=== PATIENT | male | born 1995 | race Caucasian/White ===

== ENCOUNTER 2021-03-02 20:42 | Emergency (ER) | payer BC, OTHER ==
[2021-03-02] MEDS ORDERED: Lidocaine 2% 5 ML SDV INJECT ONE (21:11)
--- NOTE | 2021-03-02 21:18 | EDM.PDOC ---
ED HPI GENERAL MEDICAL PROBLEM - General Chief Complaint: Bite:Animal, Insect Stated Complaint: CUT CHIN Time Seen by Provider: 03/02/21 20:58 Source of Information: Reports: Patient History Limitations: Reports: No Limitations - History of Present Illness INITIAL COMMENTS - FREE TEXT/NARRATIVE: Patient is a 25-year-old male who presents today for laceration to his chin. Patient states that he was bit by a family dog is up-to-date on shots. Patient denies any other injuries. Patient is up-to-date on his tetanus is just on the . - Related Data Allergies Allergy/AdvReac Type Severity Reaction Status Date / Time No Known Allergies Allergy Verified 03/02/21 21:06 Home Meds: Home Meds . [No Known Home Meds] 04/21/14 [History] Past Medical History - Past Health History Medical/Surgical History: Denies Medical/Surgical History ED ROS GENERAL - Review of Systems Review Of Systems: See Below Constitutional: Reports: No Symptoms HEENT: Reports: No Symptoms Respiratory: Reports: No Symptoms Cardiovascular: Reports: No Symptoms Endocrine: Reports: No Symptoms GI/Abdominal: Reports: No Symptoms : Reports: No Symptoms Musculoskeletal: Reports: No Symptoms Skin: Reports: Other Neurological: Reports: No Symptoms Psychiatric: Reports: No Symptoms Hematologic/Lymphatic: Reports: No Symptoms Immunologic: Reports: No Symptoms ED EXAM, ANIMAL BITE - Physical Exam Exam: See Below Exam Limited By: No Limitations General Appearance: Alert, WD/WN, No Apparent Distress Head: Other (laceration chin 3cm) Neurological: Alert, Oriented ED ANIMAL BITE PROCEDURES - Laceration/Wound Repair Face Lac/Wound Length In cm: 3 (chin) Appearance: Superficial Local Anesthesia - Lidocaine (Xylocaine): 1% Plain Local Anesthetic Volume: 2cc Saline Irrigation (cc's): 1,000 Closed With: Sutures Suture Size: 5-0 Suture Type: Running Course - Vital Signs Last Recorded V/S: Last Vital Signs Temp 98.2 F 03/02/21 21:04 Pulse 69 03/02/21 21:04 Resp 18 03/02/21 21:04 BP 142/64 H 03/02/21 21:04 Pulse Ox 98 03/02/21 21:04 - Orders/Labs/Meds Meds: Medications Discontinued Medications Generic Name Dose Route Start Last Admin Trade Name Freq PRN Reason Stop Dose Admin Lidocaine 5 ml 03/02/21 21:11 03/02/21 21:22 Lidocaine 2% 5 Ml Sdv INJECT 03/02/21 21:12 Not Given ONETIME ONE Lidocaine HCl Confirm 03/02/21 21:19 03/02/21 21:22 Lidocaine 1% 5 Ml Sdv Administered 03/02/21 21:20 Not Given Dose 5 ml .ROUTE .STK-MED ONE Lidocaine HCl 5 ml 03/02/21 21:23 03/02/21 21:23 Lidocaine 1% 5 Ml Sdv INJECT 03/02/21 21:24 5 ml ONETIME ONE Administration Departure - Departure Time of Disposition: 21:39 Disposition: Home, Self-Care 01 Condition: Good Clinical Impression: Dog bite of face - Discharge Information *PRESCRIPTION DRUG MONITORING PROGRAM REVIEWED*: Not Applicable *COPY OF PRESCRIPTION DRUG MONITORING REPORT IN PATIENT ANA: Not Applicable Instructions: Animal Bite, Adult, [id number] Referrals: PCP,None [Primary Care Provider] - Forms: ED Department Discharge Additional Instructions: The following information is given to patients seen in the emergency department who are being discharged to home. This information is to outline your options for follow-up care. We provide all patients seen in our emergency department with a follow-up referral. The need for follow-up, as well as the timing and circumstances, are variable depending upon the specifics of your emergency department visit. If you don't have a primary care physician on staff, we will provide you with a referral. We always advise you to contact your personal physician following an emergency department visit to inform them of the circumstance of the visit and for follow-up with them and/or the need for any referrals to a consulting specialist. The emergency department will also refer you to a specialist when appropriate. This referral assures that you have the opportunity for follow-up care with a specialist. All of these measure are taken in an effort to provide you with optimal care, which includes your follow-up. Under all circumstances we always encourage you to contact your private physician who remains a resource for coordinating your care. When calling for follow-up care, please make the office aware that this follow-up is from your recent emergency room visit. If for any reason you are refused follow-up, please contact the [facility] Emergency Department at and asked to speak to the emergency department charge nurse. Please follow up with your primary care physician. If you do not have a primary care physician, see below: [facility] [address] [place] [address] My [facility] [address] [place] [address] You are seen today for dog bite to your face. We cleaned the area and sutured it up. We also sent home antibiotics. The area becomes more red swollen or inflamed please return to the ED. Sepsis Event Note (ED) - Evaluation Sepsis Screening Result: No Definite Risk - Focused Exam Vital Signs: Vital Signs Temp Pulse Resp BP Pulse Ox 03/02/21 21:04 98.2 F 69 18 142/64 H 98 - Assessment/Plan Plan: Patient is a 25-year-old male presents today for laceration to his chin at the been bit by dog. Patient has no other injuries or laceration. Patient l aceration repair with sutures.
== END 2021-03-02 21:54 | disposition home or self-care (01) ==
LOC: MW.ED 20:42
DX: S01.85XA Open bite of other part of head, initial encounter (principal); W54.0XXA Bitten by dog, initial encounter
CPT/HCPCS: 12013; 99282; 99283-25